=== PATIENT | female | born 1945 | race Caucasian/White ===

== ENCOUNTER 2017-11-28 15:23 | Emergency (ER) | payer MEDICARE, OTHER ==
[~2017-11-28] VITALS: Ht 157.5 cm; Wt 76.2 kg
[2017-11-28 15:50] VITALS: BP 157/67
== END 2017-11-28 16:54 | disposition home or self-care (01) ==
LOC: ER 15:25
DX: S82.61XA Displaced fracture of lateral malleolus of right fibula, initial encounter for closed fracture (principal); E78.5 Hyperlipidemia, unspecified; I10 Essential (primary) hypertension; W01.0XXA Fall on same level from slipping, tripping and stumbling without subsequent striking against object, initial encounter; Y93.89 Activity, other specified; Y92.89 Other specified places as the place of occurrence of the external cause; Y99.8 Other external cause status
CPT/HCPCS: 73610

== ENCOUNTER 2018-07-13 12:30 | Emergency (ER) | payer MEDICARE, OTHER ==
[~2018-07-13] VITALS: Ht 157.5 cm; Wt 76.2 kg
[2018-07-13 14:21] VITALS: BP 147/76
[2018-07-13] MEDS ORDERED: LIDOCAINE 1% (LOCAL ANESTH.) PF 5ml SDV ID ONE (14:45)
[2018-07-13] MEDS ORDERED: BACITRACIN TOP OINT 1 UD PKG TOP ONE (14:45)
== END 2018-07-13 15:58 | disposition home or self-care (01) ==
LOC: ER 12:30
DX: S51.812A Laceration without foreign body of left forearm, initial encounter (principal); K21.9 Gastro-esophageal reflux disease without esophagitis; E78.5 Hyperlipidemia, unspecified; I10 Essential (primary) hypertension; W26.0XXA Contact with knife, initial encounter; Y93.89 Activity, other specified; Y92.89 Other specified places as the place of occurrence of the external cause; Y99.8 Other external cause status
CPT/HCPCS: 12002; 73090

== ENCOUNTER 2019-08-05 12:16 | Emergency (ER) | payer MEDICARE, OTHER ==
[~2019-08-05] VITALS: Ht 157.5 cm; Wt 73.5 kg
[2019-08-05 12:34] VITALS: BP 150/78
[2019-08-05] MEDS ORDERED: methylPREDNISolone SOD SUCC 125 MG/2 ML VL IM ONE (12:45)
[2019-08-05] MEDS ORDERED: cefTRIAXone SOD 1,000 MG VL IM ONE (12:45)
== END 2019-08-05 13:51 | disposition home or self-care (01) ==
LOC: ER 12:16
DX: J03.90 Acute tonsillitis, unspecified (principal); H60.91 Unspecified otitis externa, right ear; K21.9 Gastro-esophageal reflux disease without esophagitis; E78.5 Hyperlipidemia, unspecified; I10 Essential (primary) hypertension
CPT/HCPCS: 87070; 87880; 96372; 99284; J0696; J2930

== ENCOUNTER → 2021-10-31 05:00 | Emergency (ER) | payer MEDICARE, OTHER ==
[~2021-10-31] VITALS: Ht 154.9 cm; Wt 65.8 kg
[~2021-10-31 05:00] MED LIST: FUROSEMIDE 20 MG TAB PO ONE; METO-281 PO; OMEP-263 PO; SPIRONOLACTONE 25 MG TAB PO ONE
[2021-10-31 05:35] LABS: Basophils # (auto) 0.1 10 ^3/uL (0-0.2); Basophils % (auto) 1.4 % (0.0-2.0); Eosinophils # (auto) 0.1 10 ^3/uL (0-0.8); Eosinophils % (auto) 1.6 % (0.0-7.0); Hematocrit 42.7 % (36.0-46.0); Hemoglobin 14.7 g/dL (12.2-16.2); Lymphocytes # (auto) 1.8 10 ^3/uL (0.4-5.4); Lymphocytes % (auto) 25.2 % (10.0-50.0); Mean Corpuscular Hgb Conc. 34.5 g/dL (32.0-36.0); Mean Corpuscular Volume 89.8 fL (80.0-100.0); Monocytes # (auto) 0.4 10 ^3/uL (0-1.3); Monocytes % (auto) 6.1 % (0.0-12.0); Neutrophils # (auto) 4.8 10 ^3/uL (1.6-8.6); Neutrophils % (auto) 65.7 % (37.0-80.0); Nucleated Red Blood Cells % 0.1 %; Red Blood Cells 4.76 10^6/uL (4.0-5.20); Red Cell Distribution Width 13.9 % (11.8-14.3); White Blood Cell 7.3 10^3/uL (4.4-10.8)
[2021-10-31 05:54] LABS: Albumin 3.3 g/dL (3.4-5.0); Calcium 8.8 mg/dL (8.5-10.1); Potassium 3.9 mmol/L (3.5-5.1)
[2021-10-31 05:58] LABS: BUN/Creatinine Ratio 23.6; Bilirubin, Total 0.6 mg/dL (0.2-1.0)
[2021-10-31 10:00] VITALS: BP 168/53
== END | disposition home or self-care (01) ==
LOC: EDUNIT# 04:47 → ER 05:00 → EDBD 05:00
DX: R07.89 Other chest pain (principal); K20.90 Esophagitis, unspecified without bleeding; I10 Essential (primary) hypertension; E44.1 Mild protein-calorie malnutrition; E78.5 Hyperlipidemia, unspecified; K21.9 Gastro-esophageal reflux disease without esophagitis; Z68.27 Body mass index [BMI] 27.0-27.9, adult
CPT/HCPCS: 36415; 71045; 80053; 83880; 84484; 85025; 93005